=== PATIENT | male | born 1975 | race Caucasian/White ===

== ENCOUNTER 2024-09-23 14:19 | Observation (INO) ==
[2024-09-23] MEDS ORDERED: EPINEPHRINE 1 MG/ML AMP IM STA (14:21)
[2024-09-23] MEDS: PEPCID IVP STA (14:26)
[2024-09-23] MEDS: SOLU-MEDROL 125 MG IVP STA ×2 (14:26→15:25)
[2024-09-23] MEDS: BENADRYL IVP STA (14:27)
--- NOTE | 2024-09-23 14:31 | ED.PDOC ---
General HPI ED Provider: Dr. LIZA CHARLES DO Chief Complaint: Non-specific Complaint Stated Complaint: allergic reaction from bee sting to the right foot Was stung by bee roughly 1 and half hours ago left great toe stinger no longer present patient comes in with lip and tongue swelling Time Seen by Provider: 09/23/24 14:20 Mode of Arrival: Police Information Source: Patient Exam Limitations: No limitations Primary Care Provider: SHARAN DOMÍNGUEZ APRN, [facility] Nursing and Triage Documentation Reviewed and Agree: Yes Opioid Naive vs. Tolerant What is Opioid Naive?: *Opioid Naive implies the patient is not already taking opioids or not chronically receiving opioids on a daily basis. *PRN dosing is not "usually" associated with tolerance. *Patients are at higher risk of over-sedation and aspiration. What is Opioid Tolerant?: *Opioid Tolerance implies less than the expected response to an opioid. *Acquired tolerance is defined by the patient taking 60mg of oral morphine daily (or equianalgesic dose of another opioid) for 1 week or more. *Often associated with chronic pain. *May take more than usual dose to achieve desired pain control. Review of Systems Review Of Systems Constitutional: Reports No symptoms Eyes: Reports No symptoms Ears, Nose, Mouth, Throat: Reports Mouth swelling Respiratory: Reports No symptoms Cardiac: Reports No symptoms GI: Reports No symptoms : Reports No symptoms Musculoskeletal: Reports No symptoms Skin: Reports No symptoms Neurological: Reports No symptoms Endocrine: Reports No symptoms Hematologic/Lymphatic: Reports No symptoms All Other Systems: Reviewed and Negative PFSH PFSH Family History (Updated 09/23/24 @ 18:09 by LEONORA RICHARDSON RN) Mother Lung cancer FATHER Liver cancer Social History Smoking and tobacco status: Current every day smoker Tobacco type: cigarettes Smoking packs per day: 0.5 Alcohol intake: current Alcohol intake frequency: 3 or more drinks per day Substance use type: does not use Household members: none Marital status: D Number of children: 0 Highest education level completed: high school graduate Current occupational status: employed Current occupation: [employer] Surgical History History of placement of ear tubes Z96.22 - Myringotomy tube(s) status (ICD-10) Physical Exam Physical Exam Appearance: Reports Ill-appearing Ill-appearing: Moderate Pain Distress: Mild Eyes: Reports ANDREI and EOMI ENT: Reports Ears normal, Nose normal and Other (Tongue grossly enlarged bilaterally unable to see uvula upper lip swollen lower left less swollen.) Neck: Supple Respiratory: Reports Airway patent, Breath sounds clear and Breath sounds equal; Denies Wheezes or Retractions Cardiovascular: Reports Pulses normal and No murmur GI/: Reports Soft Musculoskeletal: Reports Normal strength and ROM intact Skin: Reports Warm, Dry and Other (Foot exam and no evidence stinger still present) Neurological: Reports Sensation intact Psychiatric: Reports Affect appropriate Re-Evaluation Re-Evaluation Time of Re-Evaluation: 14:15 Lungs: Clear Skin: Warm and Dry Neuro: Alert and Oriented X3 Additional Comments: 0.3 mg of epi given IM Physician Progress Note Physician Progress Note: 1450 cricothyrotomy kit brought to bedside as a precaution. Lip swelling lips began to improve no stridor no wheezing tongue swelling still present suction set up at bedside 1520 no worsening of tongue or lip swelling no wheezing breathing no distress satting 96% room air remains tachycardic will repeat Solu-Medrol will give a liter fluid blood pressure normal 130/78 1635 heart rate improving with fluid blood pressure is normal airway remains patent however tongue and lip swelling have not really improved despite second dose of Solu-Medrol 125. Will attempt TXA 1 gram 1725 patient currently getting TXA, case discussed with hospitalist will admit for continued monitoring and treatment for this allergic reaction/angioedema During the patients stay in the Emergency Department, and after a physical exam focused on the patients chief complaint. I have concluded that the patients condition warrants inpatient admission/observation at this time. This decision was made in conjunction with testing done in the ED and after discussing the need for admission with the patient and any family present. This decision was made in conjunction with any testing done, physical exam and information provided by the patient and any family present. I took into consideration discharge but feel that either the patients condition, social supports, access to aftercare, and/or safety justify admission at this time. I have discussed this case with the admitting physician Care was assumed by admitting provider at the time the admission request was placed. I was available for emergencies after that point or if specifically identified here: none This chart was completed using voice recognition dictation software. Please excuse any errors of manager compensation including grammatical, punctuation and spelling errors. Please contact me with any questions regarding this chart Critical Care Note Critical Care Note Total Critical Care Time (mins): 50 Comments: I was called to the bedside for urgent evaluation of the patient for an apparent life-threatening event. I arrived to find the patient tongue and lip swelling During my initial evaluation I found the patient to be critically Ill and in need of my immediate attention to prevent further deterioration of their condition More than one body system was considered at risk with todays visit. The following are the primary systems identified: Respiratory, metabolic, immune During the patients ED visit I repeated re-evaluated the patient and their clinical condition reviewed laboratory testing and radiology images and intervening when needed. Initiated treatment for angioedema As a result of the patients clinical condition and presenting problem I arranged for admission The total amount of my Critical Care time during the patients course in the ED was a minimum of 50 minutes, this excluded any time spent on other services or procedures Course Course 09/23/24 17:18 09/23/24 17:18 Orders, Labs, Meds: Orders Category Date Time Status PLACE PATIENT OBSERVATION .TO MEDSURG (MONITORED BED ADMISSION 09/23/24 16:59 Active ) ACTIVITY .Up With Assistance CARE 09/23/24 17:00 Active INTAKE & OUTPUT Q8HR CARE 09/23/24 17:00 Active TELEMETRY MONITORING TELE CARE 09/23/24 16:59 Active VITAL SIGNS Q4HR CARE 09/23/24 17:01 Completed NOTHING BY MOUTH DIETARY 09/23/24 Dinner Ordered CBC W/ AUTO DIFF DAILY@0600 LAB 09/24/24 06:00 Ordered CBC W/ AUTO DIFF DAILY@0600 LAB 09/25/24 06:00 Ordered CBC W/ AUTO DIFF Stat LAB 09/23/24 17:18 Completed CMP [COMPREHENSIVE METABOLIC PANEL] Stat LAB 09/23/24 17:18 Completed COMPREHENSIVE METABOLIC PANEL DAILY@0600 LAB 09/24/24 06:00 Ordered COMPREHENSIVE METABOLIC PANEL DAILY@0600 LAB 09/25/24 06:00 Ordered Diphenhydramine Inj [Benadryl] Meds 09/23/24 14:21 Discontinued 50 mg IVP ONCE STA Diphenhydramine Inj [Benadryl] Meds 09/23/24 20:30 Active 50 mg IVP Q6H Epinephrine [Epinephrine 1 mg/10 ml Syringe] Meds 09/23/24 14:46 Discontinued 0.3 mg IVP ONCE ONE Famotidine Inj [Pepcid] Meds 09/23/24 14:21 Discontinued 20 mg IVP ONCE STA Famotidine Inj [Pepcid] Meds 09/24/24 02:30 Active 20 mg IVP Q12H Methylprednisolone Sod Succ/Pf [Solu-Medrol 125 mg] Meds 09/23/24 14:21 Discontinued 125 mg IVP ONCE STA Methylprednisolone Sod Succ/Pf [Solu-Medrol 125 mg] Meds 09/23/24 15:21 Discontinued 125 mg IVP ONCE STA Ringers Lactated Solution [Lactated Ringers] 1,000 ml Meds 09/23/24 17:30 Active IV 100 mls/hr Sodium Chloride 0.9% [Sodium Chloride] 1,000 ml Meds 09/23/24 15:21 Discontinued IV BOLUS Tranexamic Acid Meds 09/23/24 16:38 Discontinued 1,000 mg .ROUTE .STK-MED ONE Tranexamic Acid 1,000 mg Med 09/23/24 16:34 Discontinued 0.9 % Sodium Chloride [Sodium Chloride] 250 ml IV ONCE Tranexamic Acid 1,000 mg Meds 09/23/24 17:30 Discontinued 0.9 % Sodium Chloride [Sodium Chloride] 250 ml IV ONCE RESUSCITATION STATUS Routine OTHERS 09/23/24 16:59 Ordered Medications Generic Name Dose Route Start Last Admin Trade Name Freq PRN Reason Stop Dose Admin Diphenhydramine HCl 50 mg 09/23/24 20:30 Diphenhydramine Inj 50 Mg/Ml Vial IVP Q6H DARRELL Famotidine 20 mg 09/24/24 02:30 Famotidine Inj 20 Mg/2 Ml Vial IVP Q12H DARRELL Lactated Ringer's 1,000 mls @ 100 mls/hr 09/23/24 17:30 09/23/24 19:09 Lactated Ringers IV 100 mls/hr .Q10H DARRELL Administration Discontinued Medications Generic Name Dose Route Start Last Admin Trade Name Freq PRN Reason Stop Dose Admin Diphenhydramine HCl 50 mg 09/23/24 14:21 09/23/24 14:27 Diphenhydramine Inj 50 Mg/Ml Vial IVP 09/23/24 14:22 50 mg ONCE STA Administration Epinephrine HCl 0.3 mg 09/23/24 14:46 09/23/24 14:48 Epinephrine 1 Mg/10 Ml Disp.Syrin IVP 09/23/24 14:47 0.3 mg ONCE ONE Administration Famotidine 20 mg 09/23/24 14:21 09/23/24 14:26 Famotidine Inj 20 Mg/2 Ml Vial IVP 09/23/24 14:22 20 mg ONCE STA Administration Sodium Chloride 1,000 mls @ 1,000 mls/hr 09/23/24 15:21 09/23/24 16:30 Sodium Chloride IV 09/23/24 16:20 Infused BOLUS ONE Infusion Tranexamic Acid 1,000 mg/ 260 mls @ 32.5 mls/hr 09/23/24 16:34 09/23/24 16:40 Sodium Chloride IV 09/24/24 00:33 32.5 mls/hr ONCE ONE Administration Tranexamic Acid 1,000 mg/ 260 mls @ 125 mls/hr 09/23/24 17:30 09/23/24 17:05 Sodium Chloride IV 09/23/24 19:34 125 mls/hr ONCE ONE Administration Methylprednisolone Sodium Succinate 125 mg 09/23/24 14:21 09/23/24 14:26 Methylprednisolone Sod Succ/Pf 125 Mg/2 Ml Vial IVP 09/23/24 14:22 125 mg ONCE STA Administration Methylprednisolone Sodium Succinate 125 mg 09/23/24 15:21 09/23/24 15:25 Methylprednisolone Sod Succ/Pf 125 Mg/2 Ml Vial IVP 09/23/24 15:22 125 mg ONCE STA Administration Vital Signs: Temp Pulse Resp BP Pulse Ox 09/23/24 14:35 98 F 133 H 22 H 154/97 H 94 L Discharge Plan Discharge Patient Disposition: PLACED OBSERVATION Discharge Problem: Angio-edema Qualifiers: Encounter type: initial encounter Qualified Code(s): T78.3XXA - Angioneurotic edema, initial encounter Did you review [place] PRODUCTION CONSULTANT for ALL controlled substances?: Not Applicable ED Provider: LIZA CHARLES
[2024-09-23] MEDS: EPINEPHRINE 1 MG/10 ML SYRINGE IVP ONE (14:48)
[2024-09-23] MEDS: SODIUM CHLORIDE 1,000 ML IV ONE (15:25)
[2024-09-23] MEDS: SODIUM CHLORIDE IV ONE ×2 (16:40→17:05)
[2024-09-23] MEDS: TRANEXAMIC ACID IV ONE ×2 (16:40→17:05)
[2024-09-23] MEDS: TRANEXAMIC ACID ONE (17:06)
[2024-09-23 17:33] LABS: CREATININE 0.44 mg/dL (0.60-1.10)
[2024-09-23 17:49] LABS: IMMATURE GRANULOCYTE # (AUTO) 0.0 (0.0-1.0); IMMATURE GRANULOCYTE % (AUTO) 0.3 % (0.0-5.0); RDW COEFFICIENT OF VARIATION 13.3 % (11.6-14.8)
[2024-09-23 18:20] VITALS: BMI 25.4
[2024-09-23] MEDS: LACTATED RINGERS 1,000 ML IV SCH (19:09)
[2024-09-23] MEDS: BENADRYL IVP SCH (20:17)
[2024-09-24] MEDS: PEPCID IVP SCH (01:30)
[2024-09-24 05:04] VITALS: BP 131/85; PULSE 82; RESP 18; TEMP 97.8
[2024-09-24 05:22] LABS: IMMATURE GRANULOCYTE # (AUTO) 0.0 (0.0-1.0); IMMATURE GRANULOCYTE % (AUTO) 0.2 % (0.0-5.0); RDW COEFFICIENT OF VARIATION 13.2 % (11.6-14.8)
[2024-09-24 05:33] LABS: CREATININE 0.48 mg/dL (0.60-1.10)
--- NOTE | 2024-09-24 09:29 | PCM.SS ---
Provider Provider: GREGORY WOODSON PA-C, [facility] Ad[facility] Date Admission Date: 09/23/24 Discharge Date Discharge Date: 09/24/24 Primary Care Physician Primary Care Physician: SHARAN DOMÍNGUEZ APRN, FNP-C Chief Complaint Reason For Visit: ANGIOEDEMIA History of Present Illness History of Present Illness: Admitted 09/23/24 17:12, this 49 year old /WHITE/M with pmhx of hypertension who presented for facial swelling following a possible bee sting. Patient states he's been stung in the past by wasps, etc but never had any significant reactions. However he was mowing and believes it was a bee who stung him on the toe. He did not have any major reaction near the toe, but shortly after started having lip and tongue swelling. He presented to the ER, initially ERP put cric case near bedside due to the swelling. However, after solumedrol, pepcid, benadryl, fluids, and txa patient's swelling improved but not did resolve. He was admitted to [facility] for further monitoring. Patient has done well, remained on RA. No sob, wheezing, or stridor. Denies any n/v/d, abd pain. Swelling is much improved. Mild swelling to lip. States his tongue feels sore and mildly swollen but significantly better. Speech is clear, no drooling. Able to tolerate PO without difficulty. He is about 24hrs + from bee sting occurring at this point. Discussed continuing pepcid 20 mg bid and benadryl 50 mg q6-8hrs while having any swelling, may stop once it resolves completely. Will send in prednisone 20 mg bid x3 days to start tomorrow if he is still having any swelling. Otherwise, 2 epipens sent in for him as well. Educated him on use of epipens and when to use. Still present to ER for evaluation if epipen is necessary. He agrees to plan of care. [facility] Surgical History History of placement of ear tubes Z96.22 - Myringotomy tube(s) status (ICD-10) Family History Mother Lung cancer FATHER Liver cancer Social History Smoking and tobacco status: Current every day smoker Tobacco type: cigarettes Smoking packs per day: 0.5 Alcohol intake: current Alcohol intake frequency: 3 or more drinks per day Substance use type: does not use Household members: none Marital status: D Number of children: 0 Highest education level completed: high school graduate Current occupational status: employed Current occupation: [employer] Medications Mecications: Medications at Discharge (Home Meds & RX) losartan 100 mg-hydrochlorothiazide 25 mg tablet 1 tab PO QDAY #30 tabs 06/29/24 Allergies Allergies Allergy/AdvReac Type Severity Reaction Status Date / Time valsartan AdvReac seizures Verified 09/23/24 18:21 Review of Systems Constitutional: Denies Fever, Fatigue, Weakness or Loss of appetite Head: Denies Normocephalic or Atraumatic Mouth: Reports Swelling (+lips and tongue, much improved ) Throat: Reports Sore Throat Cardiovascular: Denies Chest pain, Chest Pressure, Edema or Palpitations Respiratory: Denies Cough, Shortness of air, Wheeze or Pain with breathing Gastrointestinal: Denies Nausea, Vomiting, Diarrhea, Abdominal pain or Melena Genitourinary: Denies Dysuria or Hematuria Neurological: Denies Headache, Dizziness or Syncope Physical Examination Appearance: Positive Well-appearing, Well-nourished, No Apparent Distress and Alert and Oriented x3 Head: Positive Normocephalic and Atraumatic ENT: Positive Ears Normal Neck: Positive Supple, Non-Tender, No Lynphadenopathy and Trachea Midline Heart: Positive RRR Respiratory: Positive Airway patent, Breath Sounds Clear, Bilaterally, Breath Sounds Equal, Respirations Nonlabored and Other (+uvula visualized, no significant tongue swelling noted. Mild lower lip swelling noted. Speech clear. No drooling. ); Negative Airway Obstructed, Crackles, Rhonchi, Wheezes or Retractions GI/: Positive Soft, Nontender, Bowel sounds normal and No Distention Extremities: Negative Edema Neurological: Positive Cranial nerves intact, Alert and Oriented Psychiatric: Positive Normal Judgement, Normal Insight, Affect Appropriate and Mood Appropriate Vital Signs (Last 4 Hours) Vital Signs Last 4 Hours: Vital Signs: Last 4 Hours 09/24/24 05:41 09/24/24 07:00 09/24/24 07:00 Oxygen Delivery Method Room Air Room Air Telemetry Type Bedside Monitor Telemetry Monitoring Continues Irregular Telemetry Rate (Approximate) 100-110 BPM Telemetry Heart Rate 107 H EKG ID Interval 0.12 EKG QRS Interval 0.[address] 09/24/24 07:57 09/24/24 08:00 Oxygen Delivery Method Room Air Room Air Telemetry Type Telemetry Monitoring Irregular Telemetry Rate (Approximate) Telemetry Heart Rate EKG ID Interval EKG QRS Interval Telemetry Strip Reading Labs This Visit Labs This Visit: Labs This Visit 09/23/24 09/24/24 17:18 05:07 WBC 14.15 H 5.04 D RBC 4.81 4.22 L Hgb 16.3 14.0 Hct 49.2 41.5 L D MCV 102.3 H 98.3 H MCH 33.9 H 33.2 H MCHC 33.1 33.7 RDW Coeff of Ze 13.3 13.2 Plt Count 325 319 Immature Gran % (Auto) 0.3 0.2 Neut % (Auto) 97.0 H 83.2 H Lymph % (Auto) 1.3 L 7.5 L [place] % (Auto) 1.1 8.9 Eos % (Auto) 0.0 0.0 Baso % (Auto) 0.3 0.2 Neut # (Auto) 13.7 H 4.2 Lymph # (Auto) 0.2 L 0.4 L [place] # (Auto) 0.2 L 0.5 Eos # (Auto) 0.0 0.0 Baso # (Auto) 0.0 0.0 Immature Gran # (Auto) 0.0 0.0 Sodium 135.8 134.0 L Potassium 4.35 3.82 Chloride 103.7 101.2 Carbon Dioxide 15.7 L 23.2 D Anion Gap 20.75 13.42 BUN 3.2 L 6.8 L Creatinine 0.44 L 0.48 L Estimated GFR (MDRD) 204.00 184.00 BUN/Creatinine Ratio 7.27 14.16 Glucose 115.7 H 177.8 H D Calcium 8.40 8.54 Total Bilirubin 1.31 H 1.11 AST 240.6 H 127.6 H D ALT 80.8 H 57.7 H Alkaline Phosphatase 90.9 87.2 Total Protein 7.15 6.19 L Albumin 4.20 3.58 Globulin 2.95 2.61 Albumin/Globulin Ratio 1.42 1.37 Review Review Statement: I have independently reviewed and interpreted the labs/EKGs/imaging that were ordered by the ER provider. I have reviewed all outside records that are available currently in our EMR including imaging/notes/labs from previous visits. Plan Reccomendations/Plan: 1. Angioedema following insect sting - No other signs of anaphylaxis such as n/v/d, abd pain, hypotension. On RA. Still had significant swelling of lips and tongue last night but much improved this morning. Cont pepcid, steroids, benadryl. Tolerating PO. 2. Hypertension - May continue home meds Patient has done well, remained on RA. No sob, wheezing, or stridor. Swelling is much improved. Mild swelling to lip. States his tongue feels sore and mildly swollen but significantly better. Speech is clear, no drooling. Able to tolerate PO without difficulty. Discussed continuing pepcid 20 mg bid and benadryl 50 mg q6-8hrs while having any swelling, may stop once it resolves completely. Will send in prednisone 20 mg bid x3 days to start tomorrow if he is still having any swelling. Otherwise, 2 epipens sent in for him as well. Educated him on use of epipens and when to use. Still present to ER for evaluation if epipen is necessary. He agrees to plan of care. Discharge diagnoses: 1. Angioedema following insect sting, resolved 2. Hypertension Additional Planning: Case discussed with ED Physician, Dr. Guerin. DVT Prophylaxis: Ambulation Advanced Care Plannin minutes spent discussing advance care planning. Smoking Cessation: 3 minutes spent discussing smoking cessation. Admit to: Obs Discussed Plan of Care with Dr. Lety Mejia. Review With Patient Reviewed with Patient and Family: Patient and family have been counseled on condition and care plan and have no immediate questions. I have personally discussed and reviewed the patient's visit/current labs/imaging/decision making with Dr. Lety Mejia, my supervising attending. Total number of minutes spent with patient [85] min. More than 50% of the time spent with this patient was devoted to counseling and coordination of care. Time of Admission:09/23/24 17:12 Time of Discharge: 09/24/24 0915 Discharge Plan Discharge Discharge Orders: Discharge Patient (ONCE); Ordered 09/24/24 Ordered By: GREGORY WOODSON Activity Restrictions/Additional Instructions: DISCHARGE TO HOME DX: ANGIOEDEMA DUE TO INSECT STING PHARMACY: [facility] TAKE THE FOLLOWING MEDICATIONS LONG YOU HAVE SWELLING: PEPCID (FAMOTIDINE) 20 MG TWICE DAILY (OVER THE COUNTER) BENADRYL 50 MG EVERY 6-8 HOURS (OVER THE COUNTER) PREDNISONE 20 MG TWICE DAILY (PRESCRIPTION SENT IN FOR YOU, START 09/25 IF NEEDED) YOU'VE ALSO BEEN SENT IN EPIPENS, PLEASE KEEP IN AREAS ACCESSIBLE TO YOU. IF STUNG AND SHOWING SIGNS OF REACTION, GIVE EPIPEN AND PROCEED TO ER FOR EVALUATION Care Plan Goals: Problem: Alteration in Comfort/Pain Goal: Manage pain at a tolerable level Instructions: Monitor character, location and intensity Express expectations of pain relief Pain medication as ordered Position for maximal comfort Pain management prior to activities Problem: Impaired Respiratory Status Goal: Exhibit optimal respiratory function Instructions: Notify MD of any shortness of air or swallowing issues Patient Disposition: HOME SELF-CARE Prescriptions: New prednisone 20 mg tablet 20 mg PO BID 3 Days Qty: 6 0RF Rx Instructions: TAKE STARTING 09/25 UNTIL SWELLING RESOLVES epinephrine [EpiPen 2-Vinod] 0.3 mg/0.3 mL auto-injector 0.3 mg IM Q5-15M PRN (Reason: anaphylaxis) Qty: 2 0RF Rx Instructions: do not exceed 3 doses per episode Continued losartan-hydrochlorothiazide 100-25 mg tablet 1 tab PO QDAY Qty: 30 1RF Did you review [place] MANAGING ATTORNEY for ALL controlled substances?: Not Applicable Discussed opioids are addictive and Narcan is available by prescription or from pharmacy.: No
[2024-09-24] MEDS: CHLORASEPTIC SPRAY MM PRN (09:44)
[2024-09-24] MEDS: SOLU-MEDROL 40 MG IVP ONE (09:45)
== END 2024-09-24 11:00 | disposition home or self-care (01) ==
LOC: SCU 14:19 → ED 14:19 → SCU 17:57
PROVIDERS: ADMIT Hospitalist; ATTEND Physician Assistant
DX: I10 Essential (primary) hypertension; T63.441A Toxic effect of venom of bees, accidental (unintentional), initial encounter; T78.3XXA Angioneurotic edema, initial encounter